=== PATIENT | male | born 1955 | race Caucasian/White ===

== ENCOUNTER 2019-08-14 15:39 | Inpatient (IN) | payer OTHER ==
[~2019-08-14] VITALS: Ht 177.8 cm; Wt 75.0 kg
[~2019-08-14 15:39] MED LIST: ATOR40TA PO; B-Complex With1 EACH PO; CITA20 PO; DIPH50 PO; DIVA500EC PO; FISH1000 PO; Humulin R500 UNIT/1 SC; INSR10I SC; INSULANI SC; LEVO750 PO; LIOT5 PO; LISI20 PO; LISI5 PO; LORA.5 PO; LORA2 PO; METF500 PO; MONT10T PO; PYRI50 PO; ROSU10TA PO
[2019-08-14 16:26] LABS: BASOPHILS ABSOLUTE AUTO 0.02 K/mm3 (0.00-0.23); BASOPHILS PERCENT AUTO 0 % (0-2); EOSINOPHILS ABSOLUTE AUTO 0.04 K/mm3 (0.00-0.68); EOSINOPHILS PERCENT AUTO 0 % (0-6); Hematocrit 38.7 % (37.0-53.0); Hemoglobin 12.5 g/dL (13.5-17.5); IMMATURE GRAN ABSOLUTE AUTO 0.08 K/mm3 (0.00-0.10); IMMATURE GRAN PERCENT AUTO 0 % (0-1); LYMPHOCYTES ABSOLUTE AUTO 2.22 K/mm3 (0.84-5.20); LYMPHOCYTES PERCENT AUTO 11 % (21-46); MONOCYTES ABSOLUTE AUTO 1.96 K/mm3 (0.16-1.47); MONOCYTES PERCENT AUTO 10 % (4-13); Mean Corpuscular HGB 31.3 pg (26.0-34.0); Mean Corpuscular HGB Conc 32.3 g/dL (31.5-36.5); Mean Corpuscular Volume 97 fL (80-100); Mean Platelet Volume 11.8 fL (9.1-12.4); NEUTROPHILS ABSOLUTE AUTO 15.45 K/mm3 (1.96-9.15); NEUTROPHILS PERCENT AUTO 78 % (41-73); Platelet Count 255 K/mm3 (150-400); RDW Coefficient Variation 14.1 % (11.7-14.2); RDW Standard Deviation 50.3 fL (35.1-46.3); Red Blood Cell Count 3.99 M/mm3 (4.30-5.90); White Blood Cell Count 19.77 K/mm3 (4.00-11.30)
[2019-08-14] MEDS ORDERED: MIRT15 PO (16:42)
[2019-08-14] MEDS ORDERED: ARIP10 PO (16:43)
[2019-08-14 17:08] LABS: Albumin, Blood 2.7 g/dL (3.4-5.0); Albumin/Globulin Ratio 0.5 (0.8-1.8); Bilirubin, Total 0.4 mg/dL (0.1-1.0); Bun/Creatinine Ratio 29.5 (12.0-20.0); Calcium, Blood 8.5 mg/dL (8.5-10.1); Creatinine, Blood 3.15 mg/dL (0.60-1.20); Potassium, Blood 5.5 mmol/L (3.5-5.5); Total Protein, Blood 7.7 g/dL (6.4-8.2)
[2019-08-14] MEDS ORDERED: Vitamin D2000 UNIT PO (17:51)
[2019-08-14] MEDS ORDERED: PROP80ER PO (17:51)
[2019-08-14] MEDS ORDERED: AMLO5 PO (17:51)
[2019-08-14] MEDS ORDERED: SINEMET 25-1001 EACH PO (17:52)
[2019-08-14] MEDS ORDERED: BASAGLAR K100 UNIT/1 SC ×2 (17:53)
[2019-08-14] MEDS ORDERED: Aspir 8181 MG PO (18:00)
[2019-08-14] MEDS ORDERED: ROSU5 PO (18:07)
[2019-08-14] MEDS ORDERED: DONEPEZIL HCL10 MG PO (18:10)
[2019-08-14] MEDS ORDERED: THERA1 EACH PO (18:13)
[2019-08-14] MEDS ORDERED: ALLERCLEAR10 MG PO (18:15)
[2019-08-14] MEDS ORDERED: Glucose4 GM PO (18:20)
[2019-08-14 18:42] LABS: International Normalized Ratio 1.09; Prothrombin Time Results 11.6 Sec (9.7-11.5)
--- NOTE | 2019-08-14 20:12 | NUR ---
CALLED DR. GLORIA FOR NEPHROLOGY CONSULT. NEW ORDERS RECEIVED. RENAL US WAS DONE AT BEDSIDE AND WAS FOUND TO HAVE 153ML IN BLADDER WHICH WAS REPORTED TO DR. GLORIA.
--- NOTE | 2019-08-14 20:30 | NUR ---
PT RESTING IN BED. PT IS SLOW TO RESPOND TO QUESTIONS. HX OF PARKINSON'S. PT HAS GROSS TREMOR WITH ARMS EXTENDED. PT DENIES PAIN, SOB, AND N/V. AT TIMES PT RESP RATE WILL INCREASE AND PT ASKS WHY HE IS "BREATHING SO HARD", THEN IT STOPS FOR AWHILE. ON 3L NC AND SPO2 99%. PT IS BEING R/O FOR COVID-19. NO SIGN OF DISTRESS AT THE MOMENT. CALL LIGHT IN REACH.
[2019-08-14 21:07] LABS: Adenovirus Not Detected (NOT DETECT); Bordetella pertussis Not Detected (NOT DETECT); Chlamydophila pneumoniae Not Detected (NOT DETECT); Coronavirus 229E Not Detected (NOT DETECT); Coronavirus HKU1 Not Detected (NOT DETECT); Coronavirus NL63 Not Detected (NOT DETECT); Coronavirus OC43 Not Detected (NOT DETECT); Human Metapneumovirus Not Detected (NOT DETECT); Human Rhinovirus/Enterovirus Not Detected (NOT DETECT); Influenza A/2009-H1 Not Detected (NOT DETECT); Influenza A/H1 Not Detected (NOT DETECT); Influenza A/H3 Not Detected (NOT DETECT); Influenza B Not Detected (NOT DETECT); Mycoplasma pneumoniae Not Detected (NOT DETECT); Parainfluenza Virus 1 Not Detected (NOT DETECT); Parainfluenza Virus 2 Not Detected (NOT DETECT); Parainfluenza Virus 3 Not Detected (NOT DETECT); Parainfluenza Virus 4 Not Detected (NOT DETECT); Respiratory Syncytial Virus Not Detected (NOT DETECT)
[2019-08-14 21:21] LABS: Base Excess Venous -7.9 mmol/L; Bicarbonate Venous 19.2 mmol/L (24.0-30.0); PCO2 Venous 23.1 mmHg (38-42); PO2 Venous 159 mmHg (38-42); pH Blood Venous 7.45 (7.34-7.37)
[2019-08-15 04:01] LABS: BASOPHILS ABSOLUTE AUTO 0.01 K/mm3 (0.00-0.23); BASOPHILS PERCENT AUTO 0 % (0-2); EOSINOPHILS PERCENT AUTO 0 % (0-6); Hemoglobin 11.6 g/dL (13.5-17.5); IMMATURE GRAN ABSOLUTE AUTO 0.06 K/mm3 (0.00-0.10); IMMATURE GRAN PERCENT AUTO 0 % (0-1); LYMPHOCYTES ABSOLUTE AUTO 1.19 K/mm3 (0.84-5.20); LYMPHOCYTES PERCENT AUTO 6 % (21-46); MONOCYTES ABSOLUTE AUTO 1.71 K/mm3 (0.16-1.47); MONOCYTES PERCENT AUTO 9 % (4-13); Mean Corpuscular HGB 31.4 pg (26.0-34.0); Mean Corpuscular HGB Conc 32.2 g/dL (31.5-36.5); Mean Corpuscular Volume 98 fL (80-100); Mean Platelet Volume 11.8 fL (9.1-12.4); NEUTROPHILS ABSOLUTE AUTO 15.59 K/mm3 (1.96-9.15); NEUTROPHILS PERCENT AUTO 84 % (41-73); Platelet Count 255 K/mm3 (150-400); RDW Coefficient Variation 14.1 % (11.7-14.2); RDW Standard Deviation 50.4 fL (35.1-46.3); Red Blood Cell Count 3.69 M/mm3 (4.30-5.90); White Blood Cell Count 18.56 K/mm3 (4.00-11.30)
[2019-08-15 04:36] LABS: Magnesium, Blood 2.5 mg/dL (1.6-2.4)
[2019-08-15 05:27] LABS: Alanine Aminotransfer (ALT/SGP 19 U/L (12-78); Albumin, Blood 2.3 g/dL (3.4-5.0); Albumin/Globulin Ratio 0.5 (0.8-1.8); Alk Phos 210 U/L (50-136); Anion Gap 9 mmol/L (6-16); Aspartate Aminotrans (AST/SGOT 191 U/L (12-37); Bilirubin, Direct 0.2 mg/dL (0.0-0.3); Bilirubin, Indirect 0.3 mg/dL (0.1-0.7); Bilirubin, Total 0.5 mg/dL (0.1-1.0); Blood Urea Nitrogen 95 mg/dL (8-24); Bun/Creatinine Ratio 33.3 (12.0-20.0); CO2, Blood 17 mmol/L (21-32); Calcium, Blood 8.2 mg/dL (8.5-10.1); Chloride, Blood 115 mmol/L (98-108); Creatinine, Blood 2.85 mg/dL (0.60-1.20); Globulin, Blood 4.8 g/dL (2.2-4.0); Glomerular Filtration Rate 24 (60-); Glucose, Blood 171 mg/dL (70-99); Phosphorus, Blood 3.4 mg/dL (2.5-4.9); Potassium, Blood 4.7 mmol/L (3.5-5.5); Sodium, Blood 141 mmol/L (136-145); Total Protein, Blood 7.1 g/dL (6.4-8.2)
[2019-08-15 05:33] LABS: CPK Creatine Kinase 1564 U/L (39-308); Uric Acid, Blood 8.4 mg/dL (3.5-7.2)
--- NOTE | 2019-08-15 06:44 | NUR ---
SUMMARY PT RESTING IN BED. SLOW TO RESPOND. HX OF PARKINSON'S. R RADIAL ACCESS SITE IS STABLE. HAS CLEAR OCCLUSIVE DRESSING OVER IT NOW AND ARM BOARD STILL IN PLACE. NO SIGNS OF BLEEDING. PT HAS DRY NON PRODUCTIVE COUGH. RHYTHM HAS BEEN AFIB TO SR TO JUNCTIONAL AT TIMES. PT DENIES ANY PAIN OR CP. HAS BEEN OFF OXYGEN SINCE JUST BEFORE MIDNIGHT AND HAS NOT DESATTED. NO SIGN OF DISTRESS.
--- NOTE | 2019-08-15 07:30 | NUR ---
[place] of Care: Care assumed at 0700hr. Patient sleeping, but easily roused to verbal stimuli. Drowsy when awake but oriented x4. Denies pain, discomfort, SOB, or dyspnea. VSS, spO2-96% on RA. Heart rhythm shows NSR in the 60's-70's with occasionally PAC's. Peripheral IV's x2 patent and intact. Uses urinal in bed to void without difficulty. Call light in reach, makes needs known. Call placed to Dr. Rayo this morning r/t lack of Plavix order for this morning. Dr. Rayo this placed order for plavix. Echo scheduled for this morning. Patient only ate approx 5% of breakfast but had good PO fluid intake. Swallowing without difficulty. Will continue to monitor.
[2019-08-15 10:03] LABS: Creatine Kinase MB 59.9 ng/mL (0.0-3.6)
[2019-08-15 10:09] LABS: Creatine Kinase MB Index 4.4 (0.0-4.0); Troponin I 61.8 ng/mL (0.000-0.040)
--- NOTE | 2019-08-15 16:09 | NUR ---
Update/chest pain/Dr. Rayo: At approx 1330hr, patient was turned [id number] in bed to for waqas-care and linen change. After turning in bed, patient c/o chest pain 6/10 (new onset, chest pain always denied on previous assessments). Dr. Rayo in unit at that time receiving update from this nurse, included patient elfego strokes breathing pattern. Received orders per Dr. Rayo for sublingual nitro, and IV morphine, 12-lead EKG also obtained. Patient also restless in bed, and appeared anxious, but VS remained stable, no changes noted to heart rhythm. Dr. Richardson also phoned by Nuha VEGA, received order for 2mg IV bumex x1. Sublingual nitro x2 doses ineffective. IV Morphine not effective to decrease patient's pain score (6/10), but patient became more calm, less restless in bed. Again spoke with Dr. Rayo as patient continued to c/o chest pain 6/10, received order for Nitro gtt, started at 5mcg/min at 1530hr. Patient now sleeping, and appears comfortable, VSS. Will continue to monitor.
[2019-08-15 16:12] LABS: Source, Urine Catheter
[2019-08-15 16:13] LABS: Creatine Kinase MB 42.9 ng/mL (0.0-3.6)
[2019-08-15 16:18] LABS: Bilirubin, Urine Neg (Neg); Blood, Urine Neg (Neg); Glucose Qualitative, Urine Neg (Neg); Ketones, Urine Neg (Neg); Leukocyte Esterase, Urine Neg (Neg); Nitrite, Urine Neg (Neg); Protein, Urine 2+ (Neg); Urobilinogen, Urine NORM (Normal)
[2019-08-15 16:24] LABS: Creatine Kinase MB Index 3.6 (0.0-4.0); Troponin I 59.2 ng/mL (0.000-0.040)
[2019-08-15 16:24] LABS: Appearance, Urine Clear (Clear); Color, Urine Yellow (P-Yellow)
[2019-08-15 16:25] LABS: Amorphous Light (0-Heavy); Bacteria Rare /hpf; Red Blood Cells, Urine 0-2 /hpf (0-2); Squamous Epithelial Cells Not Seen /hpf (Few); White Blood Cells, Urine 0-2 /hpf (0-5)
--- NOTE | 2019-08-15 16:46 | NUR ---
Update: patient calm, states to be comfortable. Denies chest pain at this time. Nitro gtt remains at 5mcg/min, VSS. Will continue to monitor.
--- NOTE | 2019-08-15 18:11 | NUR ---
Shift Summary: See previous notes r/t chest pain. Patient slept for remainder of shift following c/o chest pain. Nitro gtt remains at 5mcg/min, patient woken x3 throughout remainder of shift, now denies chest pain or discomfort. VS remain stable. Denies dyspnea or SOB but continues to show Gene Strokes breathing pattern, more prominent while sleeping (Dr. Rayo aware). This evenings blood glucose- 78. Patient refused dinner tray but did accept orange juice. Blood sugar increased to 120's. Will inform [facility] shift nurse of blood glucose readings and caution before giving HS Lantus. Cast cath placed today (per Dr. Rayo), following Bumex administration during episode of chest pain. Cast cath remains patent and intact, draining clear yellow urine, 725ml output. Patient sleeping at this time. Will continue to monitor until report to [facility] shift RN.
--- NOTE | 2019-08-15 21:23 | NUR ---
PT RESTING IN BED. DENIES CP. HAS PERIODS OF IRREGULAR BREATHING, NEVER DESATS. PT IS SLOW TO RESPOND, HX OF PARKINSON'S. HAS GROSS TREMOR IN HANDS. R RADIAL ACCESS SITE FROM GETTING STENTS IN HOUSEHOLD ASSISTANT YESTERDAY. SITE IS STABLE, ARM BOARD IN PLACE. ON NITRO GTT AT 5MCG/MIN. GAVE GLUCERNA FOR SUPPLEMENT SINCE PT HAS NOT EATEN MUCH TODAY AND SAID HE DRINKS THEM AT HOME. PT STILL NOT VERY INTERESTED IN IT. NO SIGN OF DISTRESS.
[2019-08-16 00:37] LABS: BASOPHILS ABSOLUTE AUTO 0.02 K/mm3 (0.00-0.23); BASOPHILS PERCENT AUTO 0 % (0-2); EOSINOPHILS PERCENT AUTO 0 % (0-6); Hemoglobin 10.6 g/dL (13.5-17.5); IMMATURE GRAN ABSOLUTE AUTO 0.11 K/mm3 (0.00-0.10); IMMATURE GRAN PERCENT AUTO 1 % (0-1); LYMPHOCYTES ABSOLUTE AUTO 1.15 K/mm3 (0.84-5.20); LYMPHOCYTES PERCENT AUTO 6 % (21-46); MONOCYTES ABSOLUTE AUTO 1.83 K/mm3 (0.16-1.47); MONOCYTES PERCENT AUTO 10 % (4-13); Mean Corpuscular HGB 31.4 pg (26.0-34.0); Mean Corpuscular HGB Conc 33.1 g/dL (31.5-36.5); Mean Corpuscular Volume 95 fL (80-100); Mean Platelet Volume 11.6 fL (9.1-12.4); NEUTROPHILS ABSOLUTE AUTO 15.61 K/mm3 (1.96-9.15); NEUTROPHILS PERCENT AUTO 83 % (41-73); Platelet Count 295 K/mm3 (150-400); RDW Standard Deviation 48.7 fL (35.1-46.3); Red Blood Cell Count 3.38 M/mm3 (4.30-5.90); White Blood Cell Count 18.72 K/mm3 (4.00-11.30)
[2019-08-16 00:54] LABS: Albumin, Blood 2.2 g/dL (3.4-5.0); Anion Gap 10 mmol/L (6-16); Blood Urea Nitrogen 99 mg/dL (8-24); Bun/Creatinine Ratio 33.4 (12.0-20.0); CO2, Blood 20 mmol/L (21-32); CPK Creatine Kinase 683 U/L (39-308); Calcium, Blood 8.3 mg/dL (8.5-10.1); Chloride, Blood 116 mmol/L (98-108); Creatinine, Blood 2.96 mg/dL (0.60-1.20); Glomerular Filtration Rate 23 (60-); Glucose, Blood 80 mg/dL (70-99); Magnesium, Blood 2.5 mg/dL (1.6-2.4); Phosphorus, Blood 4.3 mg/dL (2.5-4.9); Potassium, Blood 4.1 mmol/L (3.5-5.5); Sodium, Blood 146 mmol/L (136-145)
[2019-08-16 01:00] LABS: Creatine Kinase MB 14.8 ng/mL (0.0-3.6); Creatine Kinase MB Index 2.2 (0.0-4.0)
[2019-08-16 01:05] LABS: Troponin I 39.4 ng/mL (0.000-0.040)
--- NOTE | 2019-08-16 06:39 | NUR ---
SUMMARY PT DID WELL THROUGH THE NIGHT. DENIED CP ALL NIGHT. COLOR IS GOOD. TITRATED NITRO GTT OFF THIS AM AND PT HAS NOT COMPLAINED OF CP SINCE. STILL HAS IRREGULAR BREATHING PATTERN AT TIMES AND DRY COUGH. NO ISSUES WITH DESATING. KEPT PT ON O2 SINCE HE HAD CP ON DAY SHIFT AND DAUGHTER STATES HE USUALLY WEARS CPAP AT HOME. HELD LANTUS LAST NOC DUE TO PT NOT EATING DINNER AND COULD NOT GET HIM TO DRINK GLUCERNA. GLUCOSE ON AM LABS WAS 80. UPDATED FAMILY T/O THE NIGHT. NO SIGN OF DISTRESS THIS AM.
--- NOTE | 2019-08-16 08:45 | NUR ---
ASSUMED CARE OF PT AT 0700. BEDSIDE REPORT FROM MICHAEL VEGA. PT RESTING IN BED. RESPONSES TO VERBAL STIMULI. ANSWERS QUESTIONS APPROPRIATELY BUT SLOW TO RESPOND AND GIVES SHORT ANSWERS. PT DENIES SOB, CP OR OTHER COMPLAINTS. VSS. PT DIAPHORETIC. CHEMBG CHECKED, 56, ORANGE JUICE PROVIDED. PT ABLE TO SWALLOW s DIFFICULTIES. PT c POOR APPETITE. DID NOT EAT ANY BREAKFAST. PT DRANK GLUCERNA. ENCOURAGED PO INTAKE. NEWSOME PATENT AND DRAINING TO GRAVITY. WILL CONTINUE TO MONITOR.
--- NOTE | 2019-08-16 10:02 | NUR ---
DR ARAGON IN TO SEE PT. UPDATED ON GLUCOSE LEVELS. LANTUS D/C'D UNTIL PT STARTS TO EAT AGAIN PER DR ARAGON. WILL MEDICATED c NAHCO3 AND CONTINUE TO MONITOR NA LEVELS. DR BEST ON UNIT. PT C/O 10 CHEST PAIN, WORSE c COUGH. NON TENDER TO PALPATION. PT STATES PAIN JUST STARTED. DISCUSSED RESTARTING NITRO DRIP, WILL MEDICATED c NORCO AND FENTANYL AND MONITOR.
--- NOTE | 2019-08-16 17:02 | NUR ---
SHIFT SUMMARY PT PHYSICAL EXAM UNCHANGED. PT HAD ONE EPISODE OF CHEST PAIN THIS AM, RELIEVED c FENTANYL AND NORCO. CARDIOLOGY AWARE. ANTIBIOTICS STARTED AFTER XRAY SHOWED POSSIBLE PNA. SPEECH THERAPY EVAL, DIET CHANGED TO PUREE. CONTINUED TO ENCOURAGE PO INTAKE. LANTUS D/C'D UNTIL PT STARTS EATING AGAIN. PT CONTINUES TO FLAT AFFECT, SLOW TO RESPOND. ARM BAND REMAINS ON RIGHT ARM, DRESSING C/D/I. 850 ML CLEAR YELLOW URINE OUT THIS SHIFT. PT CONTINUES TO HAVE IRREGULAR BREATHING PATTERN, KUSH MADDOX. PT DENIES SOB. CONTINUES TO BE IN ISOLATION FOR COVID 19 R/O. WILL CONTINUE TO MONITOR UNTIL REPORT TO ONCOMING NURSE.
--- NOTE | 2019-08-17 01:24 | NUR ---
START OF SHIFT NOTE: PT IN ENHANCED ISO FOR R/O COVID 19. PT WITH FLAT AFFECT AND ANSWERS QUESTIONS WITH ONE-WORD ANSWERS. PT DID, ASK FOR DRINKS OF HIS JUICE. PT BP SLIGHTLY HYPOTENSIVE BUT WITH MAPS >65. PT ON 3L O2 VIA N/C SATS >95%. RIGHT WRIST ACCESS SITE WNL C/ NO BRUISING OR SWELLING NOTED. PT WITH NEWSOME CATH DRAINING TO GRAVITY. CALL LIGHT WITHIN REACH. WILL CONTINUE TO MONITOR.
[2019-08-17 05:59] LABS: Hematocrit 33.8 % (37.0-53.0); Hemoglobin 11.1 g/dL (13.5-17.5); Mean Corpuscular HGB 31.6 pg (26.0-34.0); Mean Corpuscular HGB Conc 32.8 g/dL (31.5-36.5); Mean Corpuscular Volume 96 fL (80-100); Mean Platelet Volume 11.2 fL (9.1-12.4); Platelet Count 352 K/mm3 (150-400); RDW Coefficient Variation 14.2 % (11.7-14.2); RDW Standard Deviation 50.1 fL (35.1-46.3); Red Blood Cell Count 3.51 M/mm3 (4.30-5.90); White Blood Cell Count 18.43 K/mm3 (4.00-11.30)
[2019-08-17 06:21] LABS: Albumin, Blood 2.1 g/dL (3.4-5.0); Albumin/Globulin Ratio 0.4 (0.8-1.8); Bilirubin, Total 0.6 mg/dL (0.1-1.0); Bun/Creatinine Ratio 35.2 (12.0-20.0); Calcium, Blood 8.5 mg/dL (8.5-10.1); Creatinine, Blood 2.93 mg/dL (0.60-1.20); Globulin, Blood 4.9 g/dL (2.2-4.0); Magnesium, Blood 2.8 mg/dL (1.6-2.4); Phosphorus, Blood 5.5 mg/dL (2.5-4.9); Potassium, Blood 4.3 mmol/L (3.5-5.5)
[2019-08-17 06:22] LABS: Bilirubin, Direct 0.1 mg/dL (0.0-0.3); Bilirubin, Indirect 0.5 mg/dL (0.1-0.7)
--- NOTE | 2019-08-17 06:42 | NUR ---
END OF SHIFT NOTE/POSSIBLE STATUS CHANGE: PT SLEPT T/O NOC. VSS. PT TOOK SIPS OFF OF THICKENED CRANBERRY JUICE AND CONSUMED ALL OF APPLESAUCE POST GAS FITTER HELPER. PT WITH FLAT AFFECT BUT DOES FOLLOW DIRECTIONS. PT REMAINS OFF NITRO GTT.
--- NOTE | 2019-08-17 06:47 | NUR ---
DR. GLORIA AT [facility].
--- NOTE | 2019-08-17 08:00 | NUR ---
AM NOTE... ASSUMED CARE OF PT APROX 0700, PT IS A&Ox4, SLOW TO RESPOND AND SPEAKS IN WHISPERS AT TIMES. PT'S VS STABLE AT THIS TIME, ON 2LNC WITH O2 SATS>90%. PT C/O OF CHEST PAIN THAT HE DISCRIBES "STABBING" THAT INCREASES WITH COUGHING. PT REFUSED BREAKFAST AND ONLY ATE 1 CUP OF APPLE SAUCE WITH HIS MEDS. PT'S CBG THIS AM WAS 53, AFTER EATING THE APPLE SAUCE AND SOME ORANGE JUICE PT'S CBG INCREASED TO 89. PT WAS NOT SYMPTOMATIC DURING THIS TIME. PT HAD LARGE BM THAT WAS PARTLY LOOSE AND PARTLY VERY HARD. PT'S NEWSOME IS PATENT AND DRAINING CLEAR YELLOW URINE TO GRAVITY. CALL LIGHT IN REACH WILL CONTINUE TO MONITOR.
--- NOTE | 2019-08-17 10:27 | NUR ---
PT UPDATE... RESULTS FOR COVID-19 HAVE COME BACK NEGATIVE FOR THIS PT. PROVIDERS AWARE.
--- NOTE | 2019-08-17 13:00 | NUR ---
ASSUMED CARE PT TRANSFERRED TO PCU 2 AT THIS TIME. HE IS DROWSY, EYES CLOSED, FLAT AFFECT, BUT HE WILL RESPOND TO VERBAL STIMULI, ANSWERS QUESTIONS APPROPRIATLEY, AND ASSISTS WITH TURNING, BP STABLE, TEMP IS LOW, 96.9, SKIN IS COOL TO TOUCH, PT POSITION FOR COMFORT, WARM BLANKET APPLIED. LUNGS CLEAR, DIM IN BASES, IRREGULAR BREATHING PATTERN NOTED. O2 SATS >96% ON 1 L O2. CALL LIGHT IN REACH.
--- NOTE | 2019-08-17 18:14 | NUR ---
SUMMARY NO ACUTE CHANGES NOTED, PT REMAINS ON 1 L O2. HE CONTINUES TO SLEEP BUT WILL WAKE WHEN STIMULATED. PT IS AN ASSIST FEED, HE REFUSED HIS DINNER TRAY, IT WAS HELD IN THE FRIDGE FOR LATER. PT IS ON A PUREE/NECTAR THICK DIET. O2 REMAINS ABOVE 94% ON 1 L O2. NEWSOME CATH REMAINS IN PLACE, PATENT, DRAINING CLEAR, YELLOW URINE. CALL LIGHT IN REACH, [facility]
[2019-08-18 03:33] LABS: Hematocrit 34.5 % (37.0-53.0); Hemoglobin 11.4 g/dL (13.5-17.5)
[2019-08-18 03:53] LABS: Anion Gap 7 mmol/L (6-16); Blood Urea Nitrogen 95 mg/dL (8-24); Bun/Creatinine Ratio 33.1 (12.0-20.0); CO2, Blood 24 mmol/L (21-32); Calcium, Blood 8.4 mg/dL (8.5-10.1); Chloride, Blood 117 mmol/L (98-108); Creatinine, Blood 2.87 mg/dL (0.60-1.20); Glomerular Filtration Rate 24 (60-); Glucose, Blood 96 mg/dL (70-99); Magnesium, Blood 2.6 mg/dL (1.6-2.4); Phosphorus, Blood 4.9 mg/dL (2.5-4.9); Potassium, Blood 4.1 mmol/L (3.5-5.5); Sodium, Blood 148 mmol/L (136-145)
--- NOTE | 2019-08-18 05:18 | NUR ---
SHIFT SUMMARY PT SLEEPING IN ROOM COMFORTABLY AT THIS TIME. NO ACUTE CHANGES IN STATUS T/O NIGHT. PT SLEPT WELL, WOKE EASILY TO VERBAL STIMULI. PT VERY FLAT AFFACT AND DOES NOT MAKE EYE CONTACT WHEN STAFF IS SPEAKING TO HIM. RESP EVEN UNLABORED ON 1L NC W/ SATS >92%. ATTEMPTED TO TAKE NC OFF PT TO RA, PT REFUSED. PT DENIED ANY CP OR SOB. PT REFUSED MANY TURNS DURING NIGHT, REPORTED DID NOT WANT MOVED. NS INFUSING IN PIV AT TKO. PT TOOK PO MEDS W/ APPLESAUCE, NO COMPLICATIONS W/ SWALLOWING. NEWSOME CATH PATENT AND DRAINING TO GRAVITY. DENIED OTHER NEEDS. CALL LIGHT IN REACH.
[2019-08-19 04:29] LABS: Hematocrit 35.1 % (37.0-53.0); Hemoglobin 11.3 g/dL (13.5-17.5)
[2019-08-19 04:50] LABS: Anion Gap 10 mmol/L (6-16); Blood Urea Nitrogen 95 mg/dL (8-24); Bun/Creatinine Ratio 33.1 (12.0-20.0); CO2, Blood 23 mmol/L (21-32); Calcium, Blood 8.6 mg/dL (8.5-10.1); Chloride, Blood 117 mmol/L (98-108); Creatinine, Blood 2.87 mg/dL (0.60-1.20); Glomerular Filtration Rate 24 (60-); Glucose, Blood 233 mg/dL (70-99); Magnesium, Blood 2.6 mg/dL (1.6-2.4); Phosphorus, Blood 4.4 mg/dL (2.5-4.9); Potassium, Blood 4.5 mmol/L (3.5-5.5); Sodium, Blood 150 mmol/L (136-145)
--- NOTE | 2019-08-19 04:58 | NUR ---
SHIFT SUMMARY NO ACUTE CHANGES NOTED FROM ASSESSMENT. VSS, ON ROOM AIR, AFIB PER ENGINEERING PROGRAM ANALYST, DENIES CP, PT CONTINUES TO HAVE SHORT APNEA EPISODES WITHOUT A DECREASE IN O2 SATURATION, PO FLUIDS/NUTRITION ENC BUT PT REFUSES. DIETARY CONSULT WAS PLACED. HE APPEARS TO BE UPSET TODAY COMPARED TO YESTERDAY. PT REFUSED TO TALK TO HIS ON THE PHONE THIS EVENING. HE WAS EDUCATED ABOUT THE CURRENT VISITING REGULATIONS/RESTRICTIONS. Q2 TURNS PROVIDED PT PERMITTED. CALL LIGHT IN REACH. [facility].
--- NOTE | 2019-08-19 19:08 | NUR ---
PT SUMMARY: PT DISCHARGE TO [facility] AT [facility], PT TRANSPORTED AROUND 1730 VIA [facility]. PT HAS BEEN STABLE WITH VITALS, REFUSED THERAPY AND DIDN'T HAVE MUCH APPETITE. PT CONTINUES ON ORAL ABO FOR PNA, IV ACCESS DC'D, NEWSOME REMAINED IN PLACE. RADIAL ACCESS SITE ON RIGHT ARM WNL TEGADERM IN PLACE. AT BEDSIDE AND WENT WITH PT. REPORT GIVEN TO [facility] NURSE AT [facility].
[2019-08-21] MEDS ORDERED: CLOP75 PO (01:00)
[2019-08-21] MEDS ORDERED: Bumetanide1 MG PO (01:00)
[2019-08-21] MEDS ORDERED: LEVFLO500 PO (01:10)
[2019-08-21] MEDS ORDERED: SODBIC650 PO (01:14)
[2019-08-21] MEDS ORDERED: XARELTO20 MG PO (01:15)
[2019-08-21] MEDS ORDERED: CLIN300 PO (01:18)
[2019-08-21] MEDS ORDERED: ACET325 PO (01:19)
[2019-08-21] MEDS ORDERED: Humalog100 UNIT/3 SC (01:27)
[2019-08-21] MEDS ORDERED: INSULANPEN SC (01:27)
== END 2019-08-19 18:12 | DRG 246 ==
LOC: ER 15:39 → ICUW 16:34 → PCU 16:34 → ICUW 18:12 → PCU 08-17 12:46
PROVIDERS: Internal Medicine Nephrology; Nurse Practitioner; Physician Assistant; ADMIT Internal Medicine Interventional Cardiology
PROC: 027034Z Dilation of Coronary Artery, One Artery with Drug-eluting Intraluminal Device, Percutaneous Approach (ICD-10-PCS; principal; 2019-08-14)
PROC: B211YZZ Fluoroscopy of Multiple Coronary Arteries using Other Contrast (ICD-10-PCS; 2019-08-14)
DX: I21.19 ST elevation (STEMI) myocardial infarction involving other coronary artery of inferior wall (principal); J96.01 Acute respiratory failure with hypoxia; J69.0 Pneumonitis due to inhalation of food and vomit; I50.21 Acute systolic (congestive) heart failure; N17.9 Acute kidney failure, unspecified; I13.0 Hypertensive heart and chronic kidney disease with heart failure and stage 1 through stage 4 chronic kidney disease, or unspecified chronic kidney disease; E87.0 Hyperosmolality and hypernatremia; E87.2 Acidosis; N18.9 Chronic kidney disease, unspecified; I48.91 Unspecified atrial fibrillation; E11.22 Type 2 diabetes mellitus with diabetic chronic kidney disease; G20 Parkinson's disease; F02.80 Dementia in other diseases classified elsewhere, unspecified severity, without behavioral disturbance, psychotic disturbance, mood disturbance, and anxiety; Z74.09 Other reduced mobility; E78.5 Hyperlipidemia, unspecified; F31.9 Bipolar disorder, unspecified; I25.10 Atherosclerotic heart disease of native coronary artery without angina pectoris; E86.0 Dehydration; E86.9 Volume depletion, unspecified; D63.1 Anemia in chronic kidney disease; E88.09 Other disorders of plasma-protein metabolism, not elsewhere classified; E83.39 Other disorders of phosphorus metabolism; E87.5 Hyperkalemia; R94.5 Abnormal results of liver function studies; Z79.4 Long term (current) use of insulin; Z79.82 Long term (current) use of aspirin
CPT/HCPCS: 0099U; 36415; 51702; 71045; 76770; 76937; 80053; 80069; 81001; 82010; 82248; 82550; 82553; 82803; 82947; 83605; 83735; 83880; 84100; 84145; 84295; 84443; 84484; 84550; 85014; 85018; 85025; 85027; 85347; 85610; 86850; 86900; 86901; 87040; 92526; 92610; 93005; 93010; 93306; 93454; 94667; 96374; 97162; 97530; 99285-25; A9270; A9270-GY; C1725; C1769; C1874; C1887; C1894; C9606; J0461; J1644; J1940; J1956; J2250; J2270; J3010; J7030; J7050; Q9967; U0002

== ENCOUNTER 2019-08-25 14:41 | Inpatient (IN) | payer OTHER ==
[~2019-08-25] VITALS: Ht 177.8 cm; Wt 68.0 kg
[~2019-08-25 14:41] MED LIST changes: +Aspir 8181 MG PO; +BASAGLAR K100 UNIT/1 SC; +Bumetanide1 MG PO; +CLIN300 PO; +Humalog100 UNIT/3 SC; +LEVFLO500 PO; +MIRT15 PO; +THERA1 EACH PO; +Vitamin D2000 UNIT PO
[2019-08-25 15:02] LABS: BASOPHILS ABSOLUTE AUTO 0.01 K/mm3 (0.00-0.23); BASOPHILS PERCENT AUTO 0 % (0-2); EOSINOPHILS PERCENT AUTO 1 % (0-6); Hematocrit 40.1 % (37.0-53.0); Hemoglobin 12.3 g/dL (13.5-17.5); IMMATURE GRAN ABSOLUTE AUTO 0.06 K/mm3 (0.00-0.10); IMMATURE GRAN PERCENT AUTO 0 % (0-1); LYMPHOCYTES ABSOLUTE AUTO 3.65 K/mm3 (0.84-5.20); LYMPHOCYTES PERCENT AUTO 23 % (21-46); MONOCYTES ABSOLUTE AUTO 1.03 K/mm3 (0.16-1.47); MONOCYTES PERCENT AUTO 7 % (4-13); Mean Corpuscular HGB 30.8 pg (26.0-34.0); Mean Corpuscular HGB Conc 30.7 g/dL (31.5-36.5); Mean Corpuscular Volume 101 fL (80-100); Mean Platelet Volume 10.9 fL (9.1-12.4); NEUTROPHILS ABSOLUTE AUTO 10.81 K/mm3 (1.96-9.15); NEUTROPHILS PERCENT AUTO 69 % (41-73); Platelet Count 429 K/mm3 (150-400); RDW Coefficient Variation 14.9 % (11.7-14.2); Red Blood Cell Count 3.99 M/mm3 (4.30-5.90); White Blood Cell Count 15.76 K/mm3 (4.00-11.30)
[2019-08-25] MEDS ORDERED: DEX GLUCOSE PO (15:15)
[2019-08-25] MEDS ORDERED: CIPRO IV (15:31)
[2019-08-25 15:43] LABS: Albumin/Globulin Ratio 0.4 (0.8-1.8); Bilirubin, Total 0.4 mg/dL (0.1-1.0); Bun/Creatinine Ratio 34.6 (12.0-20.0); Calcium, Blood 8.3 mg/dL (8.5-10.1); Creatinine, Blood 2.63 mg/dL (0.60-1.20); Globulin, Blood 4.5 g/dL (2.2-4.0); Potassium, Blood 4.7 mmol/L (3.5-5.5); Total Protein, Blood 6.5 g/dL (6.4-8.2)
[2019-08-25] MEDS ORDERED: CLOP75 PO (16:48)
[2019-08-25] MEDS ORDERED: DONEPEZIL HCL10 MG PO (16:48)
[2019-08-25] MEDS ORDERED: ARIP10 PO (16:48)
[2019-08-25] MEDS ORDERED: ALLERCLEAR10 MG PO (16:49)
[2019-08-25] MEDS ORDERED: ROSU5 PO (16:49)
[2019-08-25] MEDS ORDERED: AMLO5 PO (16:49)
[2019-08-25] MEDS ORDERED: XARELTO15 MG PO (16:51)
[2019-08-25] MEDS ORDERED: SODBIC650 PO (16:51)
[2019-08-25] MEDS ORDERED: PROP80ER PO (16:51)
[2019-08-25] MEDS ORDERED: MEGESTROL400 MG/10 PO (16:52)
[2019-08-25] MEDS ORDERED: GUAI200 PO (16:53)
[2019-08-25] MEDS ORDERED: ACET325 PO (16:53)
[2019-08-25] MEDS ORDERED: Glucose4 GM PO (16:54)
[2019-08-25] MEDS ORDERED: SINEMET 25-1001 EACH PO (16:55)
[2019-08-25] MEDS ORDERED: INSULANPEN SC (16:56)
[2019-08-25] MEDS ORDERED: Humalog100 UNIT/1 SC (19:58)
[2019-08-26 05:47] LABS: BASOPHILS ABSOLUTE AUTO 0.02 K/mm3 (0.00-0.23); BASOPHILS PERCENT AUTO 0 % (0-2); EOSINOPHILS ABSOLUTE AUTO 0.26 K/mm3 (0.00-0.68); EOSINOPHILS PERCENT AUTO 2 % (0-6); Hematocrit 40.8 % (37.0-53.0); Hemoglobin 12.7 g/dL (13.5-17.5); IMMATURE GRAN ABSOLUTE AUTO 0.05 K/mm3 (0.00-0.10); IMMATURE GRAN PERCENT AUTO 0 % (0-1); LYMPHOCYTES ABSOLUTE AUTO 3.78 K/mm3 (0.84-5.20); LYMPHOCYTES PERCENT AUTO 24 % (21-46); MONOCYTES ABSOLUTE AUTO 0.95 K/mm3 (0.16-1.47); MONOCYTES PERCENT AUTO 6 % (4-13); Mean Corpuscular HGB Conc 31.1 g/dL (31.5-36.5); Mean Corpuscular Volume 100 fL (80-100); Mean Platelet Volume 11.2 fL (9.1-12.4); NEUTROPHILS ABSOLUTE AUTO 10.46 K/mm3 (1.96-9.15); NEUTROPHILS PERCENT AUTO 67 % (41-73); Platelet Count 382 K/mm3 (150-400); RDW Coefficient Variation 14.8 % (11.7-14.2); White Blood Cell Count 15.52 K/mm3 (4.00-11.30)
[2019-08-26 06:06] LABS: Anion Gap 6 mmol/L (6-16); Blood Urea Nitrogen 75 mg/dL (8-24); Bun/Creatinine Ratio 33.5 (12.0-20.0); CO2, Blood 20 mmol/L (21-32); Calcium, Blood 8.3 mg/dL (8.5-10.1); Chloride, Blood 131 mmol/L (98-108); Creatinine, Blood 2.24 mg/dL (0.60-1.20); Glomerular Filtration Rate 31 (60-); Glucose, Blood 338 mg/dL (70-99); Magnesium, Blood 2.6 mg/dL (1.6-2.4); Sodium, Blood 157 mmol/L (136-145)
[2019-08-26 13:44] LABS: Bun/Creatinine Ratio 29.5 (12.0-20.0); Calcium, Blood 8.4 mg/dL (8.5-10.1); Creatinine, Blood 2.34 mg/dL (0.60-1.20); Potassium, Blood 4.1 mmol/L (3.5-5.5)
[2019-08-27 05:46] LABS: Hematocrit 37.3 % (37.0-53.0); Hemoglobin 11.7 g/dL (13.5-17.5)
[2019-08-27 06:04] LABS: Albumin, Blood 1.9 g/dL (3.4-5.0); Anion Gap 5 mmol/L (6-16); Blood Urea Nitrogen 55 mg/dL (8-24); Bun/Creatinine Ratio 24.3 (12.0-20.0); CO2, Blood 23 mmol/L (21-32); Calcium, Blood 8.2 mg/dL (8.5-10.1); Chloride, Blood 126 mmol/L (98-108); Creatinine, Blood 2.26 mg/dL (0.60-1.20); Glomerular Filtration Rate 31 (60-); Glucose, Blood 250 mg/dL (70-99); Magnesium, Blood 2.4 mg/dL (1.6-2.4); Phosphorus, Blood 3.1 mg/dL (2.5-4.9); Potassium, Blood 4.2 mmol/L (3.5-5.5); Sodium, Blood 154 mmol/L (136-145)
[2019-08-28 07:39] LABS: Hematocrit 36.3 % (37.0-53.0); Hemoglobin 11.5 g/dL (13.5-17.5)
[2019-08-28 07:56] LABS: Albumin, Blood 1.9 g/dL (3.4-5.0); Anion Gap 8 mmol/L (6-16); Blood Urea Nitrogen 46 mg/dL (8-24); Bun/Creatinine Ratio 22.7 (12.0-20.0); CO2, Blood 21 mmol/L (21-32); Calcium, Blood 8.1 mg/dL (8.5-10.1); Chloride, Blood 120 mmol/L (98-108); Creatinine, Blood 2.03 mg/dL (0.60-1.20); Glomerular Filtration Rate 35 (60-); Glucose, Blood 230 mg/dL (70-99); Magnesium, Blood 2.2 mg/dL (1.6-2.4); Phosphorus, Blood 2.8 mg/dL (2.5-4.9); Sodium, Blood 149 mmol/L (136-145)
[2019-08-28] MEDS ORDERED: DOCU100 PO (09:08)
[2019-08-28] MEDS ORDERED: Humulin R500 UNIT/1 SC (09:09)
[2019-08-28] MEDS ORDERED: SENN187 PO (09:09)
== END 2019-08-28 12:13 | DRG 640 ==
LOC: ER 14:41 → MEDS 17:34 → ENPENDDIS 08-28 10:52 → MEDS 08-28 12:13
PROVIDERS: Emergency Medicine; Internal Medicine Nephrology; ADMIT Internal Medicine
DX: E87.0 Hyperosmolality and hypernatremia (principal); I21.3 ST elevation (STEMI) myocardial infarction of unspecified site; I13.0 Hypertensive heart and chronic kidney disease with heart failure and stage 1 through stage 4 chronic kidney disease, or unspecified chronic kidney disease; I50.22 Chronic systolic (congestive) heart failure; N18.4 Chronic kidney disease, stage 4 (severe); I48.20 Chronic atrial fibrillation, unspecified; G93.49 Other encephalopathy; N17.9 Acute kidney failure, unspecified; E11.22 Type 2 diabetes mellitus with diabetic chronic kidney disease; Z79.4 Long term (current) use of insulin; I25.10 Atherosclerotic heart disease of native coronary artery without angina pectoris; G20 Parkinson's disease; F02.80 Dementia in other diseases classified elsewhere, unspecified severity, without behavioral disturbance, psychotic disturbance, mood disturbance, and anxiety; Z95.5 Presence of coronary angioplasty implant and graft; Z66 Do not resuscitate; D63.1 Anemia in chronic kidney disease; Z79.01 Long term (current) use of anticoagulants
CPT/HCPCS: 36415; 71045; 80048; 80053; 80069; 82947; 83735; 84295; 85014; 85018; 85025; 96360; 97162; 97166; 99284-25; A9270-GY; C1751; J1815; J7030; J7060; J7070